=== PATIENT | male | born 1970 | race Caucasian/White ===

== ENCOUNTER → 2016-08-10 | Outpatient (CLI) | payer BC | LOC: LAB 10:02 | DX: R13.10 Dysphagia, unspecified (principal); K21.9 Gastro-esophageal reflux disease without esophagitis | CPT/HCPCS: 36415; 82941 ==

== ENCOUNTER → 2021-04-22 | Outpatient (CLI) | payer BC ==
[2021-04-22 12:47] LABS: HEMOGLOBIN 16.5 gm/dl (14.0-17.5); RED BLOOD COUNT 5.55 M/UL (4.20-5.50); WHITE BLOOD COUNT 5.7 K/UL (4.5-11.0)
[2021-04-22 13:07] LABS: BUN/CREATININE RATIO 9 (0-10)
== END ==
LOC: LAB 11:49
PROVIDERS: Family Medicine Addiction Medicine
DX: H34.8310 Tributary (branch) retinal vein occlusion, right eye, with macular edema (principal)
CPT/HCPCS: 36415; 80048; 85025; 85652; 86038; 86140

== ENCOUNTER → 2021-05-09 | Outpatient (CLI) | payer BC, OTHER | LOC: KOH-I 10:30 | DX: I61.9 Nontraumatic intracerebral hemorrhage, unspecified (principal) | CPT/HCPCS: 70450 ==